=== PATIENT | female | born 1950 | race American Indian/Alaskan Native ===

== ENCOUNTER 2019-07-08 11:11 | Day surgery (SDC) | payer MEDICARE, OTHER ==
[~2019-07-08 11:11] MED LIST: IOPIDINE ONE; MYDRIACYL ONE; NEOFRIN ONE
[2019-07-08] MEDS ORDERED: NEOFRIN OS ONE (11:43)
[2019-07-08] MEDS ORDERED: IOPIDINE OS ONE ×2 (11:43→12:43)
[2019-07-08] MEDS ORDERED: MYDRIACYL OS ONE (11:43)
[2019-07-08 12:50] VITALS: BP 179/88
== END 2019-07-08 12:47 | disposition home or self-care (01) ==
LOC: OR 11:11
PROVIDERS: ATTEND Specialist
DX: H26.492 Other secondary cataract, left eye (principal); E78.00 Pure hypercholesterolemia, unspecified; I10 Essential (primary) hypertension; G47.30 Sleep apnea, unspecified; K21.9 Gastro-esophageal reflux disease without esophagitis; M19.90 Unspecified osteoarthritis, unspecified site; E07.9 Disorder of thyroid, unspecified; Z88.2 Allergy status to sulfonamides; Z79.899 Other long term (current) drug therapy; Z98.41 Cataract extraction status, right eye; Z98.42 Cataract extraction status, left eye; Z86.711 Personal history of pulmonary embolism; Z90.710 Acquired absence of both cervix and uterus; Z96.653 Presence of artificial knee joint, bilateral; Z98.890 Other specified postprocedural states

== ENCOUNTER 2019-07-15 10:48 | Day surgery (SDC) | payer MEDICARE, OTHER ==
[~2019-07-15 10:48] MED LIST changes: +APRACLONIDINE 1% OPHTH SOLN DROPERETTE ONE; -IOPIDINE ONE; -MYDRIACYL ONE; -NEOFRIN ONE; +PHENYLEPHRINE 10 MG/1 ML INJ SDV ONE; +PHENYLEPHRINE 10% OPHTH SOLN 5 ML ONE; +TROPICAMIDE 1% OPHTH SOLN 3 ML ONE
[2019-07-15] MEDS ORDERED: TROPICAMIDE 1% OPHTH SOLN 3 ML OD ONE (11:17)
[2019-07-15] MEDS ORDERED: PHENYLEPHRINE 10% OPHTH SOLN 5 ML OD ONE (11:17)
[2019-07-15] MEDS ORDERED: APRACLONIDINE 1% OPHTH SOLN DROPERETTE OD ONE (11:17)
[2019-07-15 11:20] VITALS: BP 147/57
== END 2019-07-15 10:49 | disposition home or self-care (01) ==
LOC: OR 10:48
PROVIDERS: ATTEND Specialist
DX: H26.491 Other secondary cataract, right eye (principal); E78.00 Pure hypercholesterolemia, unspecified; I10 Essential (primary) hypertension; G47.30 Sleep apnea, unspecified; M19.90 Unspecified osteoarthritis, unspecified site; Z88.2 Allergy status to sulfonamides; Z79.899 Other long term (current) drug therapy; Z98.41 Cataract extraction status, right eye; Z98.42 Cataract extraction status, left eye; Z86.711 Personal history of pulmonary embolism; Z90.710 Acquired absence of both cervix and uterus; Z96.653 Presence of artificial knee joint, bilateral
CPT/HCPCS: J2370